=== PATIENT | male | born 1985 | race Caucasian/White ===

== ENCOUNTER 2017-01-21 23:23 | Emergency (ER) | payer MEDICARE, MEDICAID ==
[2017-01-22 00:11] VITALS: BP 140/84
[2017-01-22] MEDS ORDERED: Bacitracin Oint 1 GM U/D Packet TOP ONE (00:35)
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
== END 2017-01-22 01:19 | disposition home or self-care (01) ==
LOC: JP.ED 23:23
DX: S61.432A Puncture wound without foreign body of left hand, initial encounter (principal); F17.210 Nicotine dependence, cigarettes, uncomplicated; F32.9 Major depressive disorder, single episode, unspecified; W26.0XXA Contact with knife, initial encounter
CPT/HCPCS: 12001; 99282-25; 99283-25